=== PATIENT | male | born 1955 | race African-American/Black ===

== ENCOUNTER → 2019-04-08 | Day surgery (SDC) | payer OTHER ==
[~2019-04-08] MED LIST: ACETAMINOPHEN 1000 MG/100 ML IV ONE; CEFAZOLIN SOD 1 GM/NS 50ML 50 ML IV ONE; CIALIS20 MG PO; DEXAMETHASONE SOD PHOS INJ 4 MG/ML VIAL ONE; FAMOTIDINE20 MG PO; FENTANYL CITRATE/PF 100MCG/2 ML INJ ONE; HYDROMORPHONE 2MG/ML 2 MG/ML ML ONE; IBUPROFEN400 MG PO; KETOROLAC TROMETHAMINE 30 MG/ML VIAL ONE; LIDOCAINE HCL 2% LOCAL INJ 5 ML SDV VIAL INJ ONE; MELATONIN3 M1 PO; ONDANSETRON HCL INJ 2MG/ML 2ML 2 MG/ML VIAL ONE; PROPOFOL IV EMULSION 10 MG/ML 20 ML VIAL ONE; SEVOFLURANE INHAL SOLN 250 ML PEN BTL ONE; TYLENOL EXTRA500 MG PO; ULTRAM 50MG50 MG PO
[2019-04-08 08:51] VITALS: BP 135/83
--- NOTE | 2019-04-08 12:51 | Operative Report ---
DATE OF PROCEDURE: 04/08/2019 SURGEON: Stoney Mesa MD SUPERVISOR POWDER AND PRIMER CANNING: Mert Red, certified PA. PREOPERATIVE DIAGNOSIS: Left knee recurrent medial meniscal tear. POSTOPERATIVE DIAGNOSES: 1. Left knee recurrent medial meniscal tear. 2. Lateral meniscal tear. PROCEDURES: Left knee revision arthroscopy, partial medial meniscectomy, partial lateral meniscectomy, and chondroplasty of the medial femoral condyle. INDICATIONS: The patient is a 64-year-old gentleman, who is about 9 months status post a left knee arthroscopy at an outside institution. He states that he has had persistent pain since the surgery. He presented for a second opinion. Clinic exam and MRI findings were consistent with some arthritic changes and a recurrent medial meniscal tear. The findings and options were discussed. The patient was highly motivated to proceed with a revision procedure. The risks and benefits were discussed. The likelihood of persistent arthritic pain was stressed. He stated he understood and wished to proceed. DESCRIPTION OF PROCEDURE: The patient was brought to the operating room and placed under general anesthetic. His left lower extremity was prepped and draped in a sterile manner. A preoperative time-out was performed. The extremity had been exsanguinated and a proximal tourniquet was inflated to 300 mmHg. The previous arthroscopic portals were utilized. An additional third portal for outflow was established in the superior medial aspect of the knee. The knee was insufflated with sterile saline and systematically inspected. He had a moderate amount of synovitis in the joint. There was a joint effusion when we started the case. The patellofemoral groove was very well preserved. The medial compartment was inspected. 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 There was a large complex tear of the posterior horn of the medial meniscus. This was photographed and then debrided back to a stable margin. There was a large radial component that would explain his symptoms. The medial femoral condyle was gently contoured to remove all unstable margins with a mechanical shaver. The cruciate ligaments were inspected and probed. They were unremarkable. The lateral compartment showed a small radial tear of the anterior horn. This was debrided with a mechanical shaver. The knee was thoroughly irrigated. With the findings of the tear on the medial meniscus, I did not feel that any subchondroplasty was indicated. The arthroscopic instruments were removed. The portal incisions were closed with nylon stitches. A sterile bandage was applied. The patient was extubated and transported to recovery room in stable condition. There was no blood loss and all needle and sponge counts were correct. Stoney Mesa MD DR/IRINEO /[id number]
== END | disposition home or self-care (01) ==
LOC: OR 05:09
PROVIDERS: ATTEND Specialist
DX: M17.12 Unilateral primary osteoarthritis, left knee (principal); S83.232A Complex tear of medial meniscus, current injury, left knee, initial encounter; S83.282A Other tear of lateral meniscus, current injury, left knee, initial encounter; M94.262 Chondromalacia, left knee; M65.862 Other synovitis and tenosynovitis, left lower leg; R60.9 Edema, unspecified; G47.33 Obstructive sleep apnea (adult) (pediatric); X58.XXXA Exposure to other specified factors, initial encounter; Z01.810 Encounter for preprocedural cardiovascular examination; Z68.32 Body mass index [BMI] 32.0-32.9, adult
CPT/HCPCS: 29880; 93005; J0131; J0690; J1100; J1170; J1885; J2001; J2405; J2704; J3010

== ENCOUNTER 2019-11-04 06:26 | Observation (INO) | payer OTHER ==
[2019-10-31 14:09] LABS: BASOPHILS % 0.6 % (0.0-1.0); EOSINOPHILS # (AUTO) 0.1 (0.0-0.4); HEMATOCRIT 42.3 % (38.2-49.6); LYMPHOCYTES # (AUTO) 1.8 (1.0-3.2); MEAN CORPUSCULAR HEMOGLOBIN 28.9 pg (28-32); MEAN CORPUSCULAR HGB CONC 30.7 g/dL (31-35); MONOCYTES % 14.3 % (4.4-11.3); NEUTROPHILS % 57.5 % (38.7-80.0); PLATELET COUNT 189 x10e3/uL (140-360); RED CELL DISTRIBUTION WIDTH 12.8 % (11.7-14.4)
[~2019-11-04] VITALS: Ht 180.3 cm; Wt 101.6 kg
[~2019-11-04 06:26] MED LIST changes: -ACETAMINOPHEN 1000 MG/100 ML IV ONE; -CEFAZOLIN SOD 1 GM/NS 50ML 50 ML IV ONE; +CIALIS PO; -DEXAMETHASONE SOD PHOS INJ 4 MG/ML VIAL ONE; -FENTANYL CITRATE/PF 100MCG/2 ML INJ ONE; +FLONASE ALLERG9.9 ML; -HYDROMORPHONE 2MG/ML 2 MG/ML ML ONE; -KETOROLAC TROMETHAMINE 30 MG/ML VIAL ONE; -LIDOCAINE HCL 2% LOCAL INJ 5 ML SDV VIAL INJ ONE; +LORATADINE10 MG PO; -ONDANSETRON HCL INJ 2MG/ML 2ML 2 MG/ML VIAL ONE; -PROPOFOL IV EMULSION 10 MG/ML 20 ML VIAL ONE; -SEVOFLURANE INHAL SOLN 250 ML PEN BTL ONE
[2019-11-04] MEDS ORDERED: ROPIVACAINE 246.25 MG, EPINEPHRINE HCL 1:1000 1ML 0.5 MG, CLONIDINE HCL 0.08 MG, KETORO... INJ ONE ×5 (08:00)
[2019-11-04] MEDS ORDERED: CEFAZOLIN SOD 1 GM/NS 50ML 100 ML IV ONE (08:15)
[2019-11-04] MEDS ORDERED: GABAPENTIN 300 MG CAP ONE (08:26)
[2019-11-04] MEDS ORDERED: CELECOXIB 200 MG CAP ONE (08:26)
[2019-11-04] MEDS ORDERED: DEXAMETHASONE SOD PHOS 10 MG/1 ML VIAL ONE (08:26)
[2019-11-04] MEDS ORDERED: VANCOMYCIN HCL 1,000 MG ONE (08:43)
[2019-11-04] MEDS ORDERED: TRANEXAMIC ACID 1,000 MG/10 ML ML ONE (08:44)
[2019-11-04] MEDS ORDERED: BACITRACIN 50,000 UNIT VIAL ONE (08:44)
[2019-11-04] MEDS ORDERED: SODIUM CHLORIDE 0.9% 500ML 500 ML ONE (08:45)
[2019-11-04] MEDS ORDERED: DIPHENHYDRAMINE HCL INJ 50 MG/ML VIAL IV PRN (10:15)
[2019-11-04] MEDS ORDERED: ONDANSETRON HCL INJ 2MG/ML 2ML 2 MG/ML VIAL IV PRN (10:15)
[2019-11-04] MEDS ORDERED: HYDROCODONE/APAP 7.5MG-325MG 1 EA TAB PO PRN (10:15)
[2019-11-04] MEDS ORDERED: HYDROCODONE/APAP 5MG-325MG TAB PO PRN (10:15)
[2019-11-04] MEDS ORDERED: ZOLPIDEM TARTRATE 5 MG TAB PO PRN (10:15)
[2019-11-04] MEDS ORDERED: ACETAMINOPHEN 650 MG SUPP PR PRN (10:15)
[2019-11-04] MEDS ORDERED: DOCUSATE SODIUM 100 MG CAP PO PRN (10:15)
[2019-11-04] MEDS ORDERED: KETOROLAC TROMETHAMINE 30 MG/ML VIAL IV PRN (10:15)
[2019-11-04] MEDS ORDERED: HYDROMORPHONE 2MG/ML 2 MG/ML ML ONE (10:32)
[2019-11-04] MEDS ORDERED: MORPHINE SULFATE INJ 4 MG/ML INJ 1ML ONE ×2 (10:43→10:48)
--- NOTE | 2019-11-04 11:42 | Diagnostic Imaging Report ---
EXAM: KNEE LEFT 1-2 VIEWS DATE: 11/04/2019 10:35 AM INDICATION: Postop COMPARISON: None FINDINGS: There are postsurgical changes from recent total left knee arthroplasty. Hardware appears intact and in anatomic alignment. There is no evidence for acute fracture or dislocation. No focal lytic or blastic abnormality is identified. There is soft tissue gas and small joint effusion present, likely postsurgical. Overlying skin brian noted. IMPRESSION: Expected postsurgical changes from recent left knee arthroplasty. Signed by: Dr. Dimitri Tavares MD on 11/04/2019 11:38 AM
[2019-11-04 13:03] VITALS: BP 115/78
--- NOTE | 2019-11-04 13:03 | NUR ---
PT ARRIVED TO ROOM 102; PT SLEEPING, EASILY AROUSED, ORIENTED X3. NO SIGNS OF DISTRESS.
[2019-11-04 13:05] VITALS: BP 115/78
--- NOTE | 2019-11-04 13:43 | Operative Report ---
DATE OF PROCEDURE: 11/04/2019 SURGEON: Stoney Mesa MD DRIVEMATIC MACHINE OPERATOR: Mert Red, certified PA. PREOPERATIVE DIAGNOSIS: Osteoarthritis, left knee. POSTOPERATIVE DIAGNOSIS: Osteoarthritis, left knee. PROCEDURE: Left total knee arthroplasty. INDICATIONS: The patient is a 64-year-old gentleman, who has arthritic changes in his left knee. He has failed extensive conservative management including two arthroscopies by different physicians. He states the pain is incapacitating and preventing him from returning to work. He would like to proceed with definitive intervention. The risks and benefits of a left total knee replacement were explained at length. Realistic expectations were discussed. All of his questions were answered. He states he understands and wishes to proceed. PROCEDURE IN DETAIL: The patient was brought to the operating room and placed under general anesthetic. He received a regional block, prophylactic antibiotics and tranexamic acid in the holding area. His left lower extremity was prepped and draped in a sterile manner. A preoperative time-out was performed. The extremity was exsanguinated and a proximal tourniquet was inflated to 300 mmHg. An anterior incision with a medial parapatellar arthrotomy was performed. Clear synovial fluid was removed from the joint. Soft tissue releases were performed to bring the knee up into flexion with the patella everted. The cruciate ligaments and meniscal remnants were removed. A [employer] medial congruent knee system was used throughout the case. The proximal tibia was carefully exposed. An extramedullary cutting guide was used to resect the tibia. The cut was referenced off the involved medial compartment. The tibial base plate was a size G. The central fin was drilled and impacted. Attention was directed towards the distal femur. An intramedullary cutting guide was used to resect the distal femur in 5 degrees of valgus and rotation referencing off a combination of landmarks including Whitesides line, the epicondylar axis, and the posterior condyles. The femoral component was a size 11. The anterior and posterior cuts were made. Trial reductions were performed. A 10 mm medial congruent tibial insert provided appropriate soft tissue balancing in full extension and 90 degrees of flexion. The patella was resurfaced with a 38 mm x 9.5 mm patellar button. The thickness was checked before and after, and was right at 27 mm each time. Patellar tracking was concentric. The trial implants were removed. The knee was thoroughly irrigated with a shower tip pulsatile lavage and a spray mixture of diluted polymyxin and vancomycin spray. A 100 mL premixed pericapsular CARLOS injection was placed into the surrounding soft tissue. The components were cemented into place using a single mix of high viscosity Biomet cement preloaded with antibiotics. Care was taken to remove extravasated cement. The wound was further irrigated while the cement cured. The arthrotomy was then carefully closed with interrupted #1 Ethibond. The knee was put through flexion and extension to ensure a secure closure. The skin was closed with subcuticular Vicryl and brian. A 500 mg of vancomycin powder was sprinkled into the wound prior to the deep closure. A sterile Aquacel bandage was applied. The patient was extubated and transported to the recovery room in stable condition. Blood loss was minimal. All needle and sponge counts were correct. Stoney Mesa MD DR/IRINEO /[id number]
[2019-11-04] MEDS ORDERED: SEVOFLURANE INHAL SOLN 250 ML PEN BTL ONE (14:17)
[2019-11-04] MEDS ORDERED: ETOMIDATE 2 MG/ML 10 ML INJ IV ONE (14:17)
[2019-11-04] MEDS ORDERED: ONDANSETRON HCL INJ 2MG/ML 2ML 2 MG/ML VIAL ONE (14:17)
[2019-11-04] MEDS ORDERED: ACETAMINOPHEN 1000 MG/100 ML IV ONE (14:17)
[2019-11-04] MEDS ORDERED: DEXAMETHASONE SOD PHOS INJ 4 MG/ML VIAL ONE (14:17)
[2019-11-04] MEDS ORDERED: PROPOFOL IV EMULSION 10 MG/ML 20 ML VIAL ONE (14:17)
[2019-11-04] MEDS ORDERED: BUPIVACAINE HCL 0.5% INJ 30 ML VIAL INJ ONE (15:14)
[2019-11-04] MEDS ORDERED: EPINEPHRINE HCL 1:1000 1ML 1 MG/ML AMP ONE (15:14)
[2019-11-04] MEDS ORDERED: FENTANYL CITRATE/PF 100MCG/2 ML INJ ONE (15:24)
[2019-11-04] MEDS: SODIUM CHLORIDE 0.9% 1000ML 1,000 ML IV SCH (15:30)
[2019-11-04 15:34] VITALS: BP 131/78
[2019-11-04 16:01] VITALS: BP 121/72
--- NOTE | 2019-11-04 16:01 | NUR ---
pt placed on CPM at 55. pt tolerating well.
--- NOTE | 2019-11-04 16:10 | NUR ---
DR ROSENBERG OFFICE PREARRANGED FOLLOWING DISCHARGE PLAN OF: HOME [address], [id number] [facility] CONFIRMED WITH MARY [phone] DME 3 IN ONE COMMODE, CPM AND ROLLING WALKER WITH WHEELS. PROVIDED BY [employer] [phone] NO DONIS NEEDED
[2019-11-04] MEDS: ASPIRIN 325 MG TAB PO SCH (18:00)
[2019-11-04] MEDS: CELECOXIB 200 MG CAP PO SCH (18:00)
[2019-11-04] MEDS: CEFAZOLIN SOD 1 GM/NS 50ML 50 ML IV SCH (18:02)
--- NOTE | 2019-11-04 19:05 | NUR ---
Received the patient in report.lyeing in the bed.stable condition.
[2019-11-04 20:00] VITALS: BP 101/73
[2019-11-04 21:00] VITALS: BP 101/51
--- NOTE | 2019-11-04 21:00 | NUR ---
Assessment done.no resp.distress.no pain voiced.uses ics.tolerates diet.foot pump placed.bed locked and in lowest position.phone and call light within each.instructed to call for assistance as needed.stable condition.
[2019-11-05] VITALS: BP 119/69
[2019-11-05] MEDS: CEFAZOLIN SOD 1 GM/NS 50ML 50 ML IV SCH ×2 (00:11→09:13)
[2019-11-05] MEDS: SODIUM CHLORIDE 0.9% 1000ML 1,000 ML IV SCH ×2 (01:30→11:30)
[2019-11-05 04:00] VITALS: BP 117/89
[2019-11-05 04:59] LABS: HEMATOCRIT 42.8 % (38.2-49.6); HEMOGLOBIN 13.2 g/dL (14.0-18.0)
--- NOTE | 2019-11-05 06:30 | NUR ---
CPM APPLIED @60 FLEXION DEGREE.
--- NOTE | 2019-11-05 07:05 | NUR ---
BED SIDE SHIFT REPORT GIVEN TO ONCOMING RN.STABLE CONDITION.
[2019-11-05 08:19] VITALS: BP 117/89
--- NOTE | 2019-11-05 08:22 | NUR ---
PT TAKEN OFF CPM; PT TOLERATED WELL.
[2019-11-05] MEDS: CELECOXIB 200 MG CAP PO SCH (08:42)
[2019-11-05] MEDS: ASPIRIN 325 MG TAB PO SCH (08:42)
[2019-11-05 08:51] VITALS: BP 117/77
[2019-11-05] MEDS ORDERED: ACETAMINOPHEN 1000 MG/100 ML IV PRN (10:15)
[2019-11-05] MEDS ORDERED: ONDANSETRON HCL 4 MG ORAL DISINTEGRATING TAB PO PRN (10:45)
[2019-11-05 11:30] VITALS: BP 115/73
== END 2019-11-05 14:38 | disposition home or self-care (01) ==
LOC: OR 06:26 → PACU V 10:17 → MED/SURG 14:51
PROVIDERS: ADMIT Specialist; ATTEND Specialist
DX: M17.12 Unilateral primary osteoarthritis, left knee (principal); Z11.59 Encounter for screening for other viral diseases
CPT/HCPCS: 27447; 36415 ×2; 73560; 85014; 85018; 85025; 86850; 86900; 86920; 87635; 93005; 97110; 97116 ×2; 97139; 97161; 97530; G0378 ×2; J0131; J0171; J0690 ×2; J1100 ×2; J1170; J1200; J1885; J2270; J2405; J2704; J2795; J3010; J3370; J7040